=== PATIENT | male | born 1970 | race Caucasian/White ===

== ENCOUNTER 2017-12-07 15:55 | Emergency (ER) | payer OTHER ==
[~2017-12-07] VITALS: Ht 175.3 cm; Wt 86.4 kg
[2017-12-07 16:35] VITALS: Ht 175.3 cm; Wt 86.4 kg
[2017-12-07 17:03] LABS: BASOPHILS 0.1 % (0-2); EOSINOPHILS 0.6 % (0-7); HEMATOCRIT 42.5 % (42.0-54.0); IMMATURE GRANULOCYTES 0.1 % (0-5); LYMPHOCYTES 27.2 % (15-50); MCHC 35.3 g/dL (31.0-37.0); MCV 87.8 fL (80.0-100.0); MEAN PLATELET VOLUME 9.8 fL (7.4-10.4); MONOCYTES 7.1 % (2-11); NEUTROPHILS 64.9 % (40-80); PLATELET COUNT 254 10x3/uL (130-400); RBC 4.84 10x6/uL (4.20-6.10); RDW 13.2 % (11.5-14.5); WBC 8.2 10x3/uL (4.8-10.8)
[2017-12-07 17:28] LABS: ALKALINE PHOSPHATASE 75 U/L (46-116); ALT (SGPT) 24 U/L (10-68); BILIRUBIN - TOTAL 1.82 mg/dL (0.2-1.3); CALC OSMOLALITY 282 mosm/kg (275-300); CALCIUM 8.5 mg/dL (8.5-10.1); CARBON DIOXIDE 26.1 mmol/L (21.0-32.0); CHLORIDE - SERUM 103 mmol/L (98-107); GLUCOSE 159 mg/dL (74-106); POTASSIUM - SERUM 3.5 mmol/L (3.5-5.1); PROTEIN - SERUM 7.8 g/dL (6.4-8.2); SODIUM 141 mmol/L (136-145); UREA NITROGEN 11 mg/dL (7-18); eGFR NON AFRICAN AMERICAN 85 mL/min (90-120)
[2017-12-07 17:41] LABS: CKMB 1.8 U/L (0.0-3.6); CREATINE KINASE 268 UL (21-232)
[2017-12-07 17:42] LABS: TROPONIN-I < 0.017 ng/mL (0.000-0.060)
[2017-12-07] MEDS ORDERED: ANTIVERT12.5 MG PO (20:00)
[2017-12-07] MEDS ORDERED: CORTISPORIN OTI10 M1 EACH EAR (20:01)
[2017-12-07 20:31] VITALS: BP 135/93
== END 2017-12-07 20:32 | disposition home or self-care (01) ==
LOC: D.ER 15:55
PROVIDERS: Family Medicine
DX: R42 Dizziness and giddiness (principal); R94.31 Abnormal electrocardiogram [ECG] [EKG]

== ENCOUNTER 2019-03-01 00:40 | Emergency (ER) | payer MEDICAID ==
[~2019-03-01] VITALS: Ht 175.3 cm; Wt 86.4 kg
[~2019-03-01 00:40] MED LIST: ANTIVERT12.5 MG PO; CORTISPORIN OTI10 M1 EACH EAR
[2019-03-01 01:03] VITALS: Ht 175.3 cm; Wt 86.4 kg
[2019-03-01] MEDS ORDERED: LISINOPRIL10 MG PO (01:07)
[2019-03-01] MEDS ORDERED: PENICILLIN V P500 MG PO (01:23)
[2019-03-01] MEDS ORDERED: HYDROCODON-ACE1 EA10 PO (01:23)
[2019-03-01 02:30] VITALS: BP 167/109
== END 2019-03-01 02:30 | disposition home or self-care (01) ==
LOC: D.ER 00:40
DX: K02.9 Dental caries, unspecified (principal); I10 Essential (primary) hypertension